=== PATIENT | male | born 1980 | race Caucasian/White ===

== ENCOUNTER 2020-02-26 15:43 | Emergency (ER) | payer SELFPAY ==
[2020-02-26 15:50] VITALS: BP 153/103; PULSE 98; RESP 14; TEMP 36.7; O2SAT 98
--- NOTE | 2020-02-26 16:06 | ED.GENADUL_ITS ---
Discharge Plan Disposition Patient Disposition: HOME Condition: Fair Discharge Details Chief Complaint: Recheck Clinical Impression: Substance abuse Primary Care Provider: Daryl Parr ED Provider: Nathalie Rock Home Meds and New Rx's Prescriptions: No Action naltrexone 50 mg tablet 50 mg PO DAILY Qty: 30 RF: 11 venlafaxine 75 mg capsule,extended release 24hr 75 mg PO QAM Qty: 30 RF: 11 Discharge Instructions Instructions: Polysubstance Abuse (ED) Additional Instructions: Your COVID swab was obtained today. Your results will be available in 2 to 5 days. We will call you with the results when they are available. You should refrain from alcohol and substance use and present to rehabilitation as planned Stand Alone Forms: PENDING COVID-19 TESTING Referrals: Daryl Parr [Primary Care Provider] - (As needed) Discharge Data Discharge Date/Time-TO BE ENTERED AT DEPARTURE: 02/26/20 16:19 Medical Decision Making <Nathalie Rock NP - Last Filed: 02/26/20 16:13> Medical Records Medical records reviewed: Yes I reviewed the patient's medical records. Medical records narrative: 39-year-old who presents for COVID testing so he can be admitted for rehabilitation of drug and substance abuse. He has had no symptoms or known exposure. Testing today will facilitate his admittance which is time sensitive for best outcomes <Juliocesar Tariq MD - Last Filed: 03/06/20 17:13> Patient was evaluated, treated and disposition by SHARON Rock. I was physically present in the emergency department at time of treatment and was available for consultation. I was not consulted and not involved in the care of this patient. HPI <Nathalie Rock NP - Last Filed: 02/26/20 16:13> General Date/Time Provider Initiated Documentation: 02/26/20 16:01 . Limitations to Documentation: no limitations . Information obtained by: patient . HPI Narrative: This is a 39-year-old male patient with no significant past medical history other than substance abuse who presents to the emergency department requesting a call with her so he can be admitted for drug and alcohol rehabilitation. He denies any recent illness no fever cough chills no known exposure. States his been eating and drinking bowels and bladder functioning having no active medical issues Related Data Home Medications Medication Instructions Recorded Confirmed naltrexone 50 mg tablet 50 mg PO DAILY #30 tab 02/29/20 02/29/20 venlafaxine 75 mg capsule,extended 75 mg PO QAM #30 cap 02/29/20 02/29/20 release 24 hr Previous Rx's Medication Instructions Recorded naltrexone 50 mg tablet 50 mg PO DAILY #30 tab 02/29/20 venlafaxine 75 mg capsule,extended 75 mg PO QAM #30 cap 02/29/20 release 24 hr Allergies Allergy/AdvReac Type Severity Reaction Status Date / Time No Known Allergies Allergy Unverified 02/29/20 15:05 General Stated Complaint: Recheck GRACE: 4 Review of Systems <Nathalie Rock NP - Last Filed: 02/26/20 16:13> Narrative: Patient denies fevers recent illness cough shortness of breath chest pain. All systems reviewed & are unremarkable except as noted in HPI and below PFSH <Nathalie Rock NP - Last Filed: 02/26/20 16:13> Social History Smoking/Tobacco Use Status: Current every day Tobacco Type: cigarettes Alcohol Intake: current Alcohol Intake frequency: 3 or more drinks per day A lcohol type: beer and hard liquor Drug use: Daily Substance use type: marijuana and crack/cocaine Do you feel safe at home: Yes Do you feel safe in your relationship?: Yes Exam <Nathalie Rock NP - Last Filed: 02/26/20 16:13> Const General: cooperative, healthy appearing and comfortable Nutritional Appearance: average body habitus Orientation: alert, awake and oriented x3 HENMT Head: normal to inspection, normocephalic and atraumatic Mouth: oral mucosae normal Resp Effort & Inspection: normal respiratory effort Cardio Other: [place] warm dry and well perfused GI Inspection: normal to inspection Palpation: soft Auscultation: normal bowel sounds Skin General skin exam: no rashes or lesions noted Neuro General: patient alert, patient awake and patient oriented x3 Cognition: normal cognition Speech: speech normal Gait: normal gait Motor: muscle tone normal throughout Extrem General: normal to inspection and full ROM Psych Appearance: grossly normal Mental Status: mental status grossly normal Speech and Movement: speech and movement normal Mood: congruent mood Affect: normal affect Attitude: cooperative Thought Process: normal Thought Content: normal Insight: insight good Judgment: judgment good Course <SHARON Pike Last Filed: 02/26/20 16:13> Vital Signs Vital signs: Vital Signs Temperature 36.7 C 02/26/20 15:50 Pulse 98 H 02/26/20 15:50 Respiratory Rate 14 02/26/20 15:50 Blood Pressure 153/103 H 02/26/20 15:50 Pulse Oximetry 98 02/26/20 15:50 Temperature 36.7 C 02/26/20 15:50 Temperature Source Tympanic 02/26/20 15:50 Pulse 98 H 02/26/20 15:50 Respiratory Rate 14 02/26/20 15:50 Respiratory Effort Non-Labored 02/26/20 15:53 Blood Pressure 153/103 H 02/26/20 15:50 Blood Pressure Position Sitting 02/26/20 15:50 Pulse Oximetry 98 02/26/20 15:50 Oxygen Delivery Method Room Air 02/26/20 15:50 Oxygen Flow Rate 0 02/26/20 15:50 Pain Level 0 02/26/20 15:50
[2020-02-28 07:51] LABS: COVID-19 RT-PCR Result NEGATIVE (Negative)
== END 2020-02-26 16:19 | disposition home or self-care (01) ==
LOC: ER 16:21
PROVIDERS: Emergency Provider Nurse Practitioner Acute Care; PCP Family Medicine
DX: F19.10 Other psychoactive substance abuse, uncomplicated (principal); Z11.59 Encounter for screening for other viral diseases; F17.210 Nicotine dependence, cigarettes, uncomplicated
CPT/HCPCS: 99283; U0003; 99282